=== PATIENT | male | born 1935 | race Caucasian/White ===

== ENCOUNTER → 2016-05-05 | Outpatient (CLI) | payer OTHER ==
[~2016-05-05] MED LIST: ALLO100T PO; AMOX500C3 PO; ASPEC81 PO; CLC6 PO; CRD2 PO; DIGO0.2519 PO; FRRS300 PO; INSPMPNVLG; LEVO75TA5 PO; LPT40 PO; LSN20 PO; LSX40 PO; METO25TA56 PO; METR1GEL3 TOP; OMEP20CA9 PO; POTA20TA16 PO; TRC48 PO
[2016-05-05 12:41] LABS: ESTIMATED AVERAGE GLUCOSE 186 mg/dl; HA1C FLAG Normal (Normal)
== END | disposition home or self-care (01) ==
LOC: C.LABBFT 07:31
PROVIDERS: ATTEND Nurse Practitioner Family
DX: E11.65 Type 2 diabetes mellitus with hyperglycemia (principal)

== ENCOUNTER → 2016-06-09 | Outpatient (CLI) | payer OTHER ==
--- NOTE | 2016-06-09 10:03 | DIAGNOSTIC IMAGING REPORT ---
LEFT FEMUR 2 VIEWS CLINICAL HISTORY: PAIN IN LEFT THIGH pain COMPARISON: None. DISCUSSION: Total left hip replacement. Prosthetic is in good position. Margins are intact. No abnormal depressed reaction. No evidence for acetabular protrusion. There is no evidence for soft tissue swelling. IMPRESSION: No acute process status post total left hip arthroplasty Electronically signed by: Bryan Bella M.D. 06/09/2016 10:01 AM Dictated Date/Time: 06/09/2016 10:00 AM
== END | disposition home or self-care (01) ==
LOC: C.RDSM 09:48
PROVIDERS: ATTEND Physician Assistant
DX: M79.652 Pain in left thigh (principal); Z96.642 Presence of left artificial hip joint